=== PATIENT | female | born 1940 | race Caucasian/White ===

== ENCOUNTER 2016-08-16 13:11 | Day surgery (SDC) | payer MEDICARE, BC ==
[2016-08-16 13:49] VITALS: RESP 16; TEMP 98.1
[2016-08-16] MEDS ORDERED: ALPRAZolam 0.25 MG TAB PO STA (13:59)
--- NOTE | 2016-08-16 14:56 | US ---
EXAMINATION TYPE: US FNA thyroid DATE OF EXAM: 08/16/2016 2:36 PM COMPARISON: NONE HISTORY: Thyroid nodule, E04.1 Maximal barrier technique was utilized. Ultrasound using sterile technique. The skin overlying the no dule was localized with ultrasound and the overlying skin prepped and draped. Lidocaine used for loca l anesthesia. 4passes with a 25-gauge needle were made into the nodule under ultrasound guidance. Asp irate specimen submitted to cytology. Following the procedure hemostasis achieved. No immediate compl ication IMPRESSION: Status post ultrasound-guided fine-needle aspiration of dominant right thyroid nodule, pa thology pending.
--- NOTE | 2016-08-16 14:58 | US ---
EXAMINATION TYPE: US FNA thyroid DATE OF EXAM: 08/16/2016 2:35 PM COMPARISON: NONE HISTORY: Thyroid nodule, E04.1, left thyroid nodules Maximal barrier technique was utilized. Ultrasound using sterile technique. The skin overlying the no dule was localized with ultrasound and the overlying skin prepped and draped. Lidocaine used for loca l anesthesia. 4 passes with a 25-gauge needle were made into the dominant left-sided nodule under ult rasound guidance. Aspirate specimen submitted to cytology. Following the procedure hemostasis achieve d. No immediate complication IMPRESSION: Status post ultrasound-guided fine-needle aspiration of dominant left thyroid nodule, pat hology pending. Additional smaller nodules were not sampled at this time, patient is on Plavix, addit ional biopsy can be performed pending results of the first biopsy
[2016-08-16 15:32] VITALS: BP 139/70; PULSE 70
== END 2016-08-16 14:55 | disposition home or self-care (01) ==
LOC: RADPROMAIN 13:11
PROVIDERS: ATTEND Surgery Plastic and Reconstructive Surgery
DX: E04.1 Nontoxic single thyroid nodule (principal); Z88.5 Allergy status to narcotic agent; Z88.8 Allergy status to other drugs, medicaments and biological substances
CPT/HCPCS: 10022; 76942; 88173; 88305

== ENCOUNTER 2019-02-07 13:49 | Emergency (ER) | payer MEDICARE, BC ==
[2019-02-07 15:06] VITALS: BP 126/78; PULSE 57; RESP 16; TEMP 98
[2019-02-07] MEDS ORDERED: KETOROLAC 30 MG/ML 1 ML VIAL IM STA (15:56)
--- NOTE | 2019-02-07 16:59 | XR ---
EXAMINATION TYPE: XR knee complete LT DATE OF EXAM: 02/07/2019 COMPARISON: NONE HISTORY: Knee pain TECHNIQUE: 3 views FINDINGS: There is slight narrowing of the medial joint space. I see no fracture nor dislocation. The re are small knee joint effusion. IMPRESSION: Mild osteoarthritis. No fracture.
--- NOTE | 2019-02-07 17:08 | ED ---
General Adult HPI - General Chief complaint: Extremity Injury, Lower Stated complaint: Knee pain Time Seen by Provider: 02/07/19 15:38 Source: patient Mode of arrival: wheelchair Limitations: no limitations - History of Present Illness Initial comments: Patient is a 78-year-old male presents emergency Department with left knee pain. Patient reports the pain started approximately one month ago and has not resolved. Patient reports going to her primary care who is injecting the knee with "protein" but with minimal improvement. Patient reports the pain is exacerbated with extension, flexion or weightbearing. Patient denies edema, erythema or skin discoloration. Patient denies any numbness or tingling. Patient denies any calf pain. Patient reports the pain is an 8 and throbbing with any movement or weightbearing. Patient reports taking [id number] analgesics minimal improvement. Patient also reports applying cold compresses with minimal improvement. - Related Data Home Medications Medication Instructions Recorded Confirmed Clopidogrel [Plavix] 75 mg PO QAM 08/04/14 08/08/16 Folic Acid 1 mg PO 08/04/14 08/08/16 Indapamide [Lozol] 2.5 mg PO QAM 08/04/14 08/08/16 Isosorbide Mononitrate ER [Imdur] 30 mg PO QA 08/04/14 08/08/16 Metoprolol Tartrate [Lopressor] 50 mg PO BID 08/04/14 08/08/16 Ranitidine HCl 150 mg PO BID 08/04/14 08/08/16 amLODIPine [Norvasc] 5 mg PO QA 08/04/14 08/08/16 Allopurinol [Zyloprim] 300 mg PO 09/21/15 08/08/16 Atorvastatin [Lipitor] 40 mg PO 09/21/15 08/08/16 Benazepril HCl 20 mg PO QAM 01/16/16 08/08/16 Cetirizine HCl [Zyrtec] 10 mg PO QAM 01/16/16 08/08/16 Ergocalciferol [Vitamin D2 50,000 unit PO 01/16/16 08/08/16 (DRISDOL)] Tamoxifen Citrate 20 mg PO 01/16/16 08/08/16 sitaGLIPtin [Januvia] 50 mg PO QAM 01/16/16 08/08/16 Gabapentin [Neurontin] 300 mg PO HS 08/08/16 08/08/16 Allergies Allergy/AdvReac Type Severity Reaction Status Date / Time No Known Allergies Allergy Verified 02/07/19 15:06 Review of Systems ROS Statement: Those systems with pertinent positive or pertinent negative responses have been documented in the HPI. ROS Other: All systems not noted in ROS Statement are negative. 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, breast cancer, bilateral hearing History of Any Multi-Drug Resistant Organisms: None Reported Past Surgical History: Section, Tonsillectomy Additional Past Surgical History / Comment(s): left mastectomy, lumpectomy on right side and surgical biopsy, bilat cataract removed, d and c 2015 Past Anesthesia/Blood Transfusion Reactions: Previous Problems w/ Anesthesia Additional Past Anesthesia/Blood Transfusion Reaction / Comment(s): slow to wake up Past Psychological History: No Psychological Hx Reported Smoking Status: Never smoker Past Alcohol Use History: Rare Past Drug Use History: None Reported General Exam Limitations: no limitations General appearance: alert, in no apparent distress Head exam: Present: atraumatic, normocephalic, normal inspection Eye exam: Present: normal appearance, PERRL, EOMI Pupils: Present: normal accommodation ENT exam: Present: normal exam, mucous membranes moist, normal external ear exam Neck exam: Present: normal inspection, full ROM Respiratory exam: Present: normal lung sounds bilaterally Cardiovascular Exam: Present: regular rate, normal rhythm, normal heart sounds Extremities exam: Present: normal inspection, tenderness (Tenderness along the medial aspect of the knee and inferior region of the patella.), normal capillary refill, other (+2 dorsalis pedis and posterior tibialis. No bony deformities noted). Absent: full ROM (Limited range of motion left knee due to pain), calf tenderness Back exam: Present: normal inspection, full ROM Neurological exam: Present: alert, oriented X3 Psychiatric exam: Present: normal affect, normal mood Skin exam: Present: warm, intact, normal color Course Vital Signs 02/07/19 15:03 Temperature 98 F Pulse Rate 57 L Respiratory 16 Rate Blood Pressure 126/78 O2 Sat by Pulse 98 Oximetry Medical Decision Making - Medical Decision Making Patient is a 78-year-old female presenting to emergency department with left knee pain. X-ray is indicative of osteoarthritis. I suspect the patient's symptoms are caused by the osteoarthritis and she is currently having a flare. Patient advised to follow-up with orthopedics for further management. Patient advised to alternate between Tylenol and ibuprofen for pain control. Patient advised to continue using cold or warm compresses to minimize the pain. Strict return parameters were thoroughly discussed with patient was understanding and agreeable. Case discussed with physician. Disposition Clinical Impression: Knee pain, left Disposition: HOME SELF-CARE Condition: Stable Instructions (If sedation given, give patient instructions): Knee Pain (ED) Additional Instructions: Please follow with orthopedics. Alternate between Tylenol and ibuprofen for pain control. Please return to emergency department if symptoms worsen. Is patient prescribed a controlled substance at d/c from ED?: No Referrals: Leora Francis DO [Primary Care Provider] - 1-2 days Santos Wallace MD [STAFF PHYSICIAN] - 1-2 days Time of Disposition: 17:08
== END 2019-02-07 17:10 | disposition home or self-care (01) ==
LOC: EC 13:49
DX: M25.562 Pain in left knee (principal); E11.9 Type 2 diabetes mellitus without complications; K21.9 Gastro-esophageal reflux disease without esophagitis; I10 Essential (primary) hypertension; H91.90 Unspecified hearing loss, unspecified ear; Z85.3 Personal history of malignant neoplasm of breast; Z86.73 Personal history of transient ischemic attack (TIA), and cerebral infarction without residual deficits; Z79.01 Long term (current) use of anticoagulants; Z79.84 Long term (current) use of oral hypoglycemic drugs; Z79.899 Other long term (current) drug therapy
CPT/HCPCS: 73562; 99283; 96372; J1885

== ENCOUNTER → 2024-10-27 | Outpatient (CLI) | payer MEDICARE ==
[2024-10-27 18:06] LABS: HCT 37.6 % (37.2-46.3); HGB 12.8 g/dL (12.0-15.0); MCH 32.2 pg (27.0-32.0); MCV 94.7 FL (80.0-97.0); Mean Platelet Volume 10.1 FL (9.5-12.2); NRBC Per 100 WBC 0 X 10*3/uL (0.00-0.01); Platelet Count 200 X 10*3/uL (140-440); RBC 3.97 X 10*6/uL (4.10-5.20); RDW 13.1 % (11.5-14.5)
[2024-10-27 18:39] LABS: ALT 17 U/L (8-44); AST 18 U/L (13-35); Albumin 4.5 g/dL (3.8-4.9); Albumin/Globulin Ratio 2.14 Ratio (1.60-3.17); Alkaline Phosphatase 90 U/L (41-126); Carbon Dioxide 24.5 mmol/L (21.6-31.8); Chloride 105 mmol/L (96-109); Chol/HDL Ratio 4.06 Ratio; Globulin 2.1 g/dL (1.6-3.3); Glucose 189 mg/dL (70-110); LDL Cholesterol,Calculated 59.4 mg/dL (0.0-131.0); Potassium 4.6 mmol/L (3.5-5.5); Sodium 140 mmol/L (135-145); Total Bilirubin 0.4 mg/dL (0.3-1.2); Total Protein 6.6 g/dL (6.2-8.2)
[2024-10-27 19:04] LABS: Urine Creatinine 91.9 mg/dL (28.0-217.0)
== END | disposition home or self-care (01) ==
LOC: LABWHC1 15:02
PROVIDERS: ATTEND Family Medicine
DX: E55.9 Vitamin D deficiency, unspecified (principal); I12.9 Hypertensive chronic kidney disease with stage 1 through stage 4 chronic kidney disease, or unspecified chronic kidney disease; E11.22 Type 2 diabetes mellitus with diabetic chronic kidney disease; N18.31 Chronic kidney disease, stage 3a
CPT/HCPCS: 36415; 80053; 80061; 82043; 82306; 82570; 83036; 84443; 85027